=== PATIENT | female | born 1975 | race Caucasian/White ===

== ENCOUNTER 2023-06-17 14:06 | Emergency (ER) | payer MEDICAID ==
[~2023-06-17] VITALS: Ht 162.6 cm; Wt 113.4 kg
[2023-06-17 14:49] VITALS: BP_SYST 131; PULSE 111; RESP 18; TEMP 96.8; O2SAT 97
[2023-06-17] MEDS ORDERED: BACTROBAN TP (19:58)
[2023-06-17] MEDS ORDERED: CEPH-548 PO (19:58)
[2023-06-17] MEDS ORDERED: BACITRACIN 1 GM OINT TP ONE (20:00)
[2023-06-17 20:15] VITALS: BP_SYST 123; PULSE 94; RESP 20; TEMP 98.1; O2SAT 99
== END 2023-06-17 20:15 | disposition home or self-care (01) ==
LOC: SED 14:06
DX: N61.0 Mastitis without abscess (principal); R21 Rash and other nonspecific skin eruption; Z79.899 Other long term (current) drug therapy
CPT/HCPCS: 99283